=== PATIENT | female | born 1965 | race Caucasian/White ===

== ENCOUNTER 2019-11-17 13:14 | Inpatient (IN) | payer OTHER ==
[~2019-11-17] VITALS: Ht 160 cm; Wt 77.5 kg
--- OUTSIDE RECORDS SUMMARY | ~2019-11-17 | XMS | Encounter Summary ---
Demographics + + + | Address | [address] | | | [address] | | | [place] [address] | + + + | Home Phone | | + + + | Preferred Language | Unknown | + + + | Marital Status | Single | + + + | Oriental Orthodox Affiliation | Unknown | + + + | Race | Unknown | + + + | Ethnic Group | Unknown | + + + Author + + + | Author | [facility] | | | and [place] | + + + | Organization | [facility] | | | and [place] | + + + | Address | Unknown | + + + | Phone | Unavailable | + + + Care Team Providers + +------+ + | Care Devops Developer Name | Role | Phone | + +------+ + PCP | Unavailable | + +------+ + Encounter Details +--------+ + + + + | Date | Type | Department | Care Team | Description | +--------+ + + + + | 03/16/ | [facility] | [facility] | Pete Almaguer | | | 2012 | Encounter | MED CTR XRAY [address], [address] | | | | | [place] [place] | [place], [place] | | | | | [place] [id number] | [id number] | | | | | [phone] | [phone] | | | | | | | | +--------+ + + + + Social History + +-------+ +--------+------+ | Tobacco Use | Types | Packs/Day | Years | Date | | | | | Used | | + +-------+ +--------+------+ | Never Assessed | | | | | + +-------+ +--------+------+ + + + | Sex Assigned at | Date Recorded | | | | + + + | Not on file | | + + + documented as of this encounter Plan of Treatment Not on filedocumented as of this encounter Procedures + +--------+ + + + | Procedure Name | Priori | Date/Time | Associated Diagnosis | Comments | | | ty | | | | + +--------+ + + + | XR CERVICAL SPINE 2 | | 03/16/2011 | | Results for this | | OR 3 VIEWS | | 1:58 PM | | procedure are in the | | | | PST | | results section. | + +--------+ + + + documented in this encounter Results XR Cervical Spine 3 Vws or Less (03/16/2011 1:58 PM PST) + + | Specimen | + + | | + + + + + | Narrative | Performed At | + + + | [facility] Diagnostic Imaging Department | [facility] | | [address] [facility] | [facility] | | CERVICAL SPINE SERIES WITH | DIAG IMG | | FLEX/EX VIEWS, 03/16/2011 CLINICAL HISTORY: NECK PAIN. | | | FINDINGS: Neutral position lateral demonstrates straightening of the | | | normal lordosis. There is slig ht retrolisthesis of C5 over C6 in | | | the neutral position. This does not change appreciably on flex/ex | | | maneuvers. There is diminished excursion on forward flexion. There | | | is no change in the listhesis o n extension maneuver. Vertebral | | | body heights are maintained. Spondylitic changes are noted from C3 | | | through C6. IMPRESSION: 1. CERVICAL SPONDYLOSIS WITH | | | DEGENERATIVE SPONDYLOLISTHESIS AT C5-6 WITH NO APPRECIABLE MOTION ON | | | FLE X/EX MANEUVERS. Dictated Date/Time: 03/17/2011 08:07 | | | Transcribed Date/Time: 03/17/2011 08:14 Upholstery Bundler: | | | <Electronically Signed by Gab Mccurdy MD> 03/17/11 1507 | | + + + + + | Procedure Note | + + | Andrea Cummins Conversion - 03/17/2013 4:42 PM [facility] | | Diagnostic Imaging Department [address] [facility] | | CERVICAL SPINE SERIES WITH FLEX/EX VIEWS, 03/16/2011 | | CLINICAL HISTORY: NECK PAIN. FINDINGS: Neutral position lateral demonstrates | | straightening of the normal lordosis. There is slight retrolisthesis of C5 over C6 in | | the neutral position. This does not change appreciably on flex/ex maneuvers. There is | | diminished excursion on forward flexion. There is no change in the listhesis on | | extension maneuver. Vertebral body heights are maintained. Spondylitic changes are | | noted from C3 through C6. IMPRESSION: 1. CERVICAL SPONDYLOSIS WITH DEGENERATIVE | | SPONDYLOLISTHESIS AT C5-6 WITH NO APPRECIABLE MOTION ON FLEX/EX MANEUVERS. Dictated | | Date/Time: 03/17/2011 08:07Transcribed Date/Time: 03/17/2011 08:14Transcriptionist: | | <Electronically Signed by Gab Mccurdy MD> 03/17/11 1507 | | maneuvers. There is diminished excursion on forward flexion. There is no change in the l isthesis o | |n extension maneuver. Vertebral body heights are maintained. Spondylitic changes are note d from C3 | |through C6. | | | |IMPRESSION: | |1. CERVICAL SPONDYLOSIS WITH DEGENERATIVE SPONDYLOLISTHESIS AT C5-6 WITH NO APPRECIABLE MOT ION ON FLE | |X/EX MANEUVERS. | | | |Dictated Date/Time: 03/17/2011 08:07 | |Transcribed Date/Time: 03/17/2011 08:14 | |Upholstery Bundler: | |<Electronically Signed by Gab Mccurdy MD> 03/17/11 1507 | + + + +---------+ + + | Performing | Address | City/State/Zipcode | Phone Number | | Organization | | | | + +---------+ + + | [facility] | | | | | [facility] | | | | + +---------+ + + documented in this encounter Visit Diagnoses Not on filedocumented in this encounter"
--- OUTSIDE RECORDS SUMMARY | ~2019-11-17 | XMS | Encounter Summary ---
Demographics + + + | Address | [address] | | | [address] | | | [place] [address] | + + + | Home Phone | | + + + | Preferred Language | Unknown | + + + | Marital Status | Single | + + + | Scientologist Affiliation | Unknown | + + + | Race | Unknown | + + + | Ethnic Group | Unknown | + + + Author + + + | Author | [facility] | | | and [place] | + + + | Organization | [facility] | | | and [place] | + + + | Address | Unknown | + + + | Phone | Unavailable | + + + Care Team Providers + +------+ + | Care Link Wire Fabric Machine Operator Name | Role | Phone | + +------+ + PCP | Unavailable | + +------+ + Encounter Details +--------+ + + + + | Date | Type | Department | Care Team | Description | +--------+ + + + + | 05/13/ | Hospital | [facility] | Pete Almaguer | | | 2011 | Encounter | MED [facility] OP | MD Deandre [address] | | | | | [address] | [address] [place] | | | | | [place] | [id number] | | | | | [address] | [phone] | | | | [phone] | | | +--------+ + + + [...] + + documented as of this encounter H&P Notes Pete Almaguer MD - 05/14/2011 5:48 AM PDTDATE: PREOPERATIVE HISTORY AND PHYSICAL DATE OF PROCEDURE: 05/14/2011 CHIEF COMPLAINT: Neck pain. HISTORY OF PRESENT ILLNESS: Ms. Gonzalez is a 46-year-old, right-handed female , with a h istory of approximately 1 to 2 years of pain and numbness which is in her neck and radiates into her arms and hands through her shoulders. She associates these pains and numbness wit h headaches. She has attempted conservative management in the form of nonsteroidal anti-inf lammatory medications as well as massage, heat and ice and medical marijuana and has not h ad much improvement in these symptoms. She finds that the pains are worsened with any kind of activities such as vacuuming, cleaning, lifting, and doing chores in general. She has nu mbness which is in the left greater than the right and radiates from her shoulders down int o her arm. This is associated with some weakness in her hands as well as difficulty with fi ne motor control, for example , being unable to open jars and dropping things. She also naila cribes some weakness, numbness and pain in her ankles which is worse on the left as well. She describes no difficulty with bowel or bladder control apart from some urge incontinence . PAST MEDICAL HISTORY: 1. Seizure disorder since January 2010. 2. Restless leg. 3. Hypertension. PAST SURGICAL HISTORY: 1. Appendectomy for a ruptured appendix in 1984. 2. Two sections in 1993 and 1995. 3. A number of surgeries which she reports she cannot remember. MEDICATIONS: 1. Divalproex 500 mg p.o. 5 times a day. 2. Levetiracetam 500 mg p.o. q.a.m. and 250 mg p.o. at bedtime. 3. Droperidol 2 mg p.o. da scooby. 4. Atenolol 100 mg p.o. daily. 5. Clonazepam 1 mg p.o. at bedtime. 6. Absorbine RTC topical b.i.d. ALLERGIES: TYLOX CAUSED HER TO BREAKOUT IN A RASH. SOCIAL HISTORY: She is originally from [place], [place]. Moved to this area when she was 7. She is currently in the process of getting . 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 She reports r egular heavy caffeine use, no illicit drug use other than medical marijuana. Rare alcohol u se. No tobacco use. FAMILY HISTORY: Notable for nervous disorder in her sister, alcoholism in her sister, kimberlyn berna headaches in her mother and daughter, tension headaches in her mother and daughter, c ancer in 2 of her sisters and her mother diabetes and her sister and mother as a r esult of what she describes as a wrongful . Her sister had cervical cancer at age 52. She has a 41-year-old sister she describes as being mental. She has 2 children, 1 is 17 yea rs old and has ADHD and the other is 15 years old and is on SSI. REVIEW OF SYSTEMS: On a complete 12 system review of systems, she reports all negative ex cept negative except for the following significant positives: EYES: She has impaired sight and double vision. EAR, NOSE, THROAT: Hearing difficulty, ringing in the ears, dizziness and dental work. NEUROLOGIC: Numbness and pain in her arms which awakens her. She has weakness, muscle achi ng, coordination difficulty, change in her walk, head injury, neck injury, back injury, trevon n in the neck, pain in the back, fainting spells, loss of consciousness, tremor and shaking , seizures, headaches, migraines, memory loss, speech difficulty and confusion. PSYCHIATRIC: She reports depression, difficulty sleeping, anxiety. CARDIOVASCULAR: Swelling ankles. PULMONARY: Cough. GASTROINTESTINAL: No complaints. GENITOURINARY: No complaints. ENDOCRINE: Thyroid disease. INTEGUMENTARY: No complaints. HEMATOLOGIC / LYMPHATIC: No complaints. MUSCULOSKELETAL: She does describe joint pain. CONSTITUTIONAL: She describes fatigue, anemia and about a 30 pound weight gain since she s tarted taking her current medications. PHYSICAL EXAMINATION GENERAL: The patient is a pleasant, anxious and cooperative female who appears older than her stated age. VITAL SIGNS: She stands 158 cm tall and weighs 89 kilograms with a BMI of approximately 3 6.1. Her blood pressure 138/95, heart rate is 71, respirations 18. HEENT: Optic fundi demonstrate normal vascularity. Tympanic membranes are clear. Nares b enign. Oropharynx also benign. She does have some mild tardive dyskinesia movements. NECK: Supple, not tender, has diminished and painful range of motion with no Lhermitte, no Spurling, no bruit, no mass. CHEST: Clear to auscultation bilaterally. HEART: Regular rate and rhythm. ABDOMEN: Soft, nontender. EXTREMITIES: Diminished pulses. Pedal edema. No significant deformities. BACK: Negative straight leg raise. Negative Washington sign. Negative impingement test. She d oes have exquisite pain and tenderness over the entirety of her spine , consistent with Wad dell sign. NEUROLOGIC STATUS: She is awake, alert, and oriented x3, in no acute distress. Her speech is fluent, cognition is intact. Affect is appropriate, and fund of knowledge is poor. Memor y is intact for recent and remote events. Cranial nerves II through XII are intact. Strengt h is 5/5, with the exceptions of bilateral deltoids that are 4/5 as well as her median and ulnar intrinsics which were 4/5. Bow String Maker strength is 30 pounds on the right, 35 pounds on the left. Sensory exam is diminished and paresthetic over both shoulders into the arms, radiat ing to first 3 digits, worse on the left hand. Reflexes are absent at the biceps and tricep s. Trace at the brachioradialis, 1 at patellar, absent at Achilles and a flexor plantar res ponse. She has bilateral. She has Melgoza and no clonus. MUSCULOSKELETAL EXAMINATION: Symmetric tone and bulk of the musculature. Station is uprigh t, gait is stable. She has mild difficulty with heel-toe and tandem walking. CEREBELLAR EXAMINATION: Demonstrates mild dysmetria with no dysdiadochokinesis. She does h ave tremor in both upper extremities which is worse on the left. RADIOGRAPHIC REVIEW: An MRI of the cervical spine from November 04, 2010, demonstrates he rniated nucleus pulposus at C5-6 level which results in spinal stenosis. It is associated w ith disk degeneration. There is mild disk bulge and degeneration at the C3-4 level. There i s overall loss of cervical lordosis. X-rays AP and lateral flexion and extension from March 16, demonstrates spondylolisthesi s at C5-6 level but no evidence of any hypermobility or malalignment. IMPRESSION: 1. CERVICAL SPONDYLOTIC MYELOPATHY. 2. HERNIATED NUCLEUS PULPOSUS, C5-6. 3. CERVICAL STENOSIS, C5-6. 4. SEIZURE DISORDER. 5. MARIJUANA USE. 6. MIGRAINES. 7. RESTLESS LEGS. PLAN: Ms. Gonzalez has some reflex changes consistent with myelopathy and her clinical pi cture also supports this diagnosis. I think in addition to the radicular components of her cervical disease, this is the most worrisome. We did discuss treatment options including co nservative measures versus surgical option. I do think that the surgical decompression and stabilization would provide her with some improvement. She does have clinical features of functional overlay and this does concern me but at the same time, I think the organic findi ngs cannot be disputed. We did discuss stabilization and decompression at the C5-6 level al xochitl with the risks, alternatives and benefits of surgical intervention. The risks included, but not limited to, , stroke , heart attack, numbness, weakness, paralysis, failure o f the fusion, failure of the hardware, subsidence, adjacent segments deterioration, cerebro spinal fluid leak, bleeding, infection, injury to surrounding organs, injury from position ing, injury to the nerves, difficulty breathing, difficulty swallowing, difficulty with voi ce change and need for additional surgery. I did discuss with her also the risk of smoking and this is something that she verbalized understanding but she also verbalized reluctance to stop smoking marijuana. She felt that t his was the only thing that provides her with significant relief. In any event, will attempt to see if we can preparole counseling aide her into smoking cessation. Additional ly, we will obtain our usual preoperative evaluations and plan for surgery on the . DICTATED BY: Pete Almaguer MD Neurosurgery JOB #: [id number] EXT JOB #:[id number] EDITED: 05/14/2011 08:02 <Electronically Signed by Pete Almaguer MD> 05/18/11 0621 documented in this encounter Miscellaneous Notes Op Note - Pete Almaguer MD - 05/14/2011 5:48 AM PDTDATE: 05/14/2011 PROCEDURE TITLE 1. C5-6 anterior cervical diskectomy with allograft interbody arthrodesis. 2. C5-C6 anteri or cervical plating arthrodesis. 3. Microsurgical technique. 4. Placement and removal of head halter traction. SURGEON: Pete Almaguer MD. GEOSCIENCE TECHNICIAN: Trudi ANESTHESIA: General endotracheal by Dr. Sharif. PREOPERATIVE DIAGNOSES: 1. Herniated nucleus pulposus C5-6 with radiculopathy. 2. Degenerative disease C5-6. POSTOPERATIVE DIAGNOSES: 1. Herniated nucleus pulposus C5-6 with radiculopathy. 2. Degenerative disease C5-6. SPECIMENS: None. ESTIMATED BLOOD LOSS: 21 mL COMPLICATIONS: None. PROCEDURE TIME: 1 hour. INDICATIONS: Ms. Gonzalez is a 46-year-old female with a history of neck, shoulder, and roberto ateral arm pain as well as numbness and weakness. She has attempted extensive conservative management for this but unfortunately has failed. After discussion of the risks, alternativ es, and benefits of surgical i ntervention, she has elected to provide informed consent for the following procedure. PROCEDURE DESCRIPTION: Ms. Gonzalez was brought in the operative suite in supine position o n a stretc her and placed under general anesthesia without difficulty. She received 2 g Anc ef prophylactic antib iosis, 10 mg Decadron, 20 mg Pepcid. She was then placed in gentle ex tension with a shoulder roll and head halter traction was applied, approximately 15 pounds. She then had her shoulders taped for bett er visualization with lateral fluoroscopy, and t hen the anterior portion of her neck was prepped and draped in usual sterile fashion. A #10 blade was then employed to perform an approximately 3 cm transverse incision along a skinfold a nd then immaculate hemostasis was obtained with monopolar and bipolar cautery. M onopolar cautery was employed to transect the platysma and then a subplatysmal releasing di ssection was performed sharply. The anterior intermediate cervical fascia was incised sharp ly and then a blunt dissection ensued whi ch was medial to the carotid sheath and lateral t o the cervical strap muscles and esophagus. This all owed access to the anterior longitudin al ligament. A spinal needle was then placed into the C5-6 inte rspace and confirmed with l ateral fluoroscopy. Releasing dissection was then performed bilaterally of the longus colli with monopolar cautery, and this allowed placement of the Koros anterior cervical r etract or system. Once positioned, then the anterior osteophytes were resected with a Leksell rongeur and the n the ante rior longitudinal ligament and annulus was incised sharply with a #15 blade. The diskectomy then ensu ed with a combination of curettes, rongeurs and this was to prepare t he endplates for arthrodesis as well as provide for direct and indirect decompression. Ante rior osteophytes and posterior osteophytes were drilled with high-speed drill and resected with rongeurs. In the course of the diskectomy, the cartilaginous endplates were resected a nd bony endplates were preserved. The posterior longitudinal l igament was dissected with a micronerve hook and then resected with Kerrison rongeur. This resection was carried bilate rally into the neural foramina and decompression was performed bilaterally in the n eural f oramina. Thus, severe stenosis was noted bilaterally. Once the decompression was completed, t hen copious irrigation was applied, immaculate hemostasis plane obtained. The neural mina ments were no adriana to be significantly decompressed. The life graft interbody allograft spac ers were then sized with assistance of AP and lateral fluoroscopy. A 6 mm x 11.5 x 14.5 khadijah dotic biomechanical spacer was fel t to be appropriate. This was positioned into the disk s pace. The weights were then removed from the head and then the 22 mm anterior plate from Am joseph spine was then positioned. A And P Technician holes were drill ed and then 4 variable angled 12 mm 4.0 x 4.0 screws were placed into the bodies and secured and lock ed into the plate. The p urchase was adequate and the construct was stable. Copious irrigation was applied, immaculate hemostasis obtained. A 360-degree circumferentia l evaluati on of the surgical corridor was then performed to ensure that there was no addit ional hemorrhaging. T he bipolar cautery was employed to facilitate this as well. Multiple Valsalva maneuvers were also per formed to ensure that there was no additional hemorrhaging . At this point, then the anterior intermediate cervical fascia was closed and reapproximated with inte rrupted inverted 3-0 Vicryl sutures. The platysma was closed with interrupted in verted 3-0 Vicryl sut ures, and then the skin was closed with interrupted inverted 4-0 Vicr yl sutures. Then, over the surfa ce of the skin, Dermabond was applied. The patient was then awoke from general anesthesia without apparent complications, having t olerated p rocedure well. It should be noted that a timeout was performed prior to initiation of the procedure, and a ll counts were reported correct at the end. DICTATED BY: Pete Almaguer MD Neurosurgery JOB #: [id number] EXT JOB #:[id number] <Electronicall y Signed by Pete Almaguer MD> 05/18/11 0621 documented in this encounter Plan of Treatment Not on filedocumented as of this encounter Procedures + +--------+ + + + | Procedure Name | Priori | Date/Time | Associated Diagnosis | Comments | | | ty | | | | + +--------+ + + + | XR SPINE 1 VW | | 05/14/2011 | | Results for this | | | | 5:48 AM | | procedure are in the | | | | PDT | | results section. | + +--------+ + + + documented in this encounter Results XR Spine 1 Vw (05/14/2011 5:48 AM PDT) + + | Specimen | + + | | + + + + + | Narrative | Performed At | + + + | [facility] Diagnostic Imaging Department | [facility] | | [address] [facility] | [facility] | | SINGLE VIEW CERVICAL SPINE, | DIAG IMG | | 05/14/11 CLINICAL HISTORY: STATUS POST ACDF. COMPARISON: | | | Cervical radiographs 03/16/11, Cervical MRI 11/04/10. FINDINGS: | | | Anterior nbtnp-rec-paynn-fusion hardware is now present at C5-6 and | | | appears to be well-sea adriana. An interbody fusion prosthesis is | | | present at this level as well. There is straightening of the | | | cervical lordosis. Cervical vertebral height and alignment are | | | otherwise maintained, without eviden t fracture or subluxation. | | | Mild disk space narrowing and vertebral spondylosis are present at | | | C3-4. Imaged skull base is unremarkable. Prevertebral soft tissue | | | swelling is consistent with a history o f preceding instrumentation | | | of this region. IMPRESSION: 1. SATISFACTORY APPEARANCE | | | STATUS POST ACDF AT C5-6. Dictated Date/Time: 05/14/2011 | | | 12:24 Transcribed Date/Time: 05/14/2011 12:48 Block Handler: | | | SDC <Electronically Signed by Indra Finnegan MD> 05/14/11 2253 | | + + + + + | Procedure Note | + + | Placido, Rad Conversion - 03/17/2013 5:03 PM [facility] | | Diagnostic Imaging Department [address] [facility] [place] | | SINGLE VIEW CERVICAL SPINE, 05/14/11 CLINICAL HISTORY: | | STATUS POST ACDF. COMPARISON: Cervical radiographs 03/16/11, Cervical MRI 11/04/10. | | FINDINGS: Anterior yxrld-gak-aqira-fusion hardware is now present at C5-6 and appears | | to be well-seated. An interbody fusion prosthesis is present at this level as well. | | There is straightening of the cervical lordosis. Cervical vertebral height and | | alignment are otherwise maintained, without evident fracture or subluxation. Mild disk | | space narrowing and vertebral spondylosis are present at C3-4. Imaged skull base is | | unremarkable. Prevertebral soft tissue swelling is consistent with a history of | | preceding instrumentation of this region. IMPRESSION: 1. SATISFACTORY APPEARANCE | | STATUS POST ACDF AT C5-6. Dictated Date/Time: 05/14/2011 12:24Transcribed Date/Time: | | 05/14/2011 12:48Transcriptionist: <Electronically Signed by Indra Finnegan MD> | | 05/14/11 2253 | | cervical lordosis. Cervical vertebral height and alignment are otherwise maintained, with out eviden | |t fracture or subluxation. Mild disk space narrowing and vertebral spondylosis are present at C3-4. | | Imaged skull base is unremarkable. Prevertebral soft tissue swelling is consistent with a history o | |f preceding instrumentation of this region. | | | |IMPRESSION: | |1. SATISFACTORY APPEARANCE STATUS POST ACDF AT C5-6. | | | |Dictated Date/Time: 05/14/2011 12:24 | |Transcribed Date/Time: 05/14/2011 12:48 | |Block Handler: MR.SDC | |<Electronically Signed by Indra Finnegan MD> 05/14/11 2253 | + + + +---------+ + + | Performing | Address | City/State/Zipcode | Phone Number | | Organization | | | | + +---------+ + + | [place] | | | | | [place] | | | | + +---------+ + + documented in this encounter Visit Diagnoses Not on filedocumented in this encounter"
--- OUTSIDE RECORDS SUMMARY | ~2019-11-17 | XMS | Clinical Summary ---
Demographics + + + | Address | [address] | | | [address] | | | [place] [address] | + + + | Home Phone | | + + + | Preferred Language | Unknown | + + + | Marital Status | Single | + + + | Catholic Affiliation | Unknown | + + + | Race | Unknown | + + + | Ethnic Group | Unknown | + + + Author + + + | Author | [facility] | | | and [place] | + + + | Organization | [facility] | | | and [place] | + + + | Address | Unknown | + + + | Phone | Unavailable | + + + Care Team Providers + +------+ + | Care Cruise Staff Member Name | Role | Phone | + +------+ + PCP | Unavailable | + +------+ + Allergies Not on File Medications Not on file Active Problems Not on file Social History + +-------+ +--------+------+ | Tobacco [...] on file | | + + + Last Filed Vital Signs Not on file Plan of Treatment + + +-------+ + | Health Maintenance | Due Date | Last | Comments | | | | Done | | + + +-------+ + | Vaccine: | | | | | Dtap/Tdap/Td (1 - | 7 | | | | Tdap) | | | | + + +-------+ + | Cervical Cancer | | | | | Screening (Pap) | 8 | | | + + +-------+ + | Breast Cancer | | | | | Screening | 3 | | | + + +-------+ + | Vaccine: Zoster (1 | | | | | of 2) | 8 | | | + + +-------+ + | Vaccine: Influenza | | | | | (#1) | 0 | | | + + +-------+ + Results Not on filefrom Last 3 Months"
--- OUTSIDE RECORDS SUMMARY | ~2019-11-17 | XMS | Clinical Summary ---
Demographics + + + | Address | [address] | | | [place] [address] | + + + | Home Phone | | + + + | Preferred Language | Unknown | + + + | Marital Status | Unknown | + + + | Adventist Affiliation | Unknown | + + + | Race | Unknown | + + + | Ethnic Group | Unknown | + + + Author + + + | Author | NON REVENUE LOCATIONS | + + + | Organization | NON REVENUE LOCATIONS | + + + | Address | Unknown | + + + | Phone | Unavailable | + + + Care Team Providers + +------+ + | Care Nutrient Management Specialist Name | Role | Phone | + +------+ + PCP | Unavailable | + +------+ + Source Comments GARTH is fully live on both [facility] and [facility] Allergies Not on File Medications Not on [...] | | + + +-------+ + | Influenza (Flu) | | | | | vaccination (#1) | 0 | | | + + +-------+ + | Pneumococcal | Aged Out | | No longer eligible based on patient's age | | vaccination | | | to complete this topic | + + +-------+ + Results Not on filefrom Last 3 Months
--- OUTSIDE RECORDS SUMMARY | ~2019-11-17 | XMS | Clinical Summary ---
Demographics + + + | Address | [address] | | | [place] [address] | + + + | Home Phone | | + + + | Preferred Language | Unknown | + + + | Marital Status | Unknown | + + + | Sikhism Affiliation | Unknown | + + + [...] Team Providers + +------+ + | Care Arabic Professor Name | Role | Phone | + +------+ + PCP | Unavailable | + +------+ + Source Comments GARTH is fully live on both [facility] and [facility] InPatient.[facility] Allergies Not on File Medications Not on [...]
--- OUTSIDE RECORDS SUMMARY | ~2019-11-17 | XMS | Encounter Summary ---
Demographics + + + | Address | [address] | | | [place] [address] | + + + | Home Phone | | + + + | Preferred Language | Unknown | + + + | Marital Status | Unknown | + + + | Judaism Affiliation | Unknown | + + + | Race | Unknown | + + + | Ethnic Group | Unknown | + + + Author + + + | Author | [facility] | + + + | Organization | [facility] | + + + | Address | Unknown | + + + | Phone | Unavailable | + + + Care Team Providers + +------+ + | Care Mainspring Winder And Oiler Name | Role | Phone | + +------+ + PCP | Unavailable | + +------+ + Encounter Details +--------+ + + + + | Date | Type | Department | Care Team | Description | +--------+ + + + + | 02/12/ | Documentati | Neurology at | Demetrio Ibrahim, | | | 2010 | on | [facility] & | [address] | | | | | [place] [address] | [place], [place] | | | | | [address] [facility] | [address] | | | | | [facility], | [phone] | | | | | [facility] | | | | | | Floor [place], [place] | | | | | | [address] | | | | | | [phone] | | | +--------+ + + + [...] Not on filedocumented as of this encounter Visit Diagnoses Not on filedocumented in this encounter
--- OUTSIDE RECORDS SUMMARY | ~2019-11-17 | XMS | Clinical Summary ---
Demographics + + + | Address | [address] | | | [address] | | | [place] [address] | + + + | Home Phone | | + + + | Preferred Language | Unknown | + + + | Marital Status | Single | + + + | Voodoo Affiliation | Unknown | + + + | Race | Unknown | + + + | Ethnic Group | Unknown | + + + Author + + + | Author | [facility] | | | and [place] | + + + | Organization | [facility] | | | and [place] | + + + | Address | Unknown | + + + | Phone | Unavailable | + + + Care Team Providers + +------+ + | Care Multineedle Shirrer Name | Role | Phone | + [...]
--- OUTSIDE RECORDS SUMMARY | ~2019-11-17 | XMS | Encounter Summary ---
Demographics + + + | Address | [address] | | | [place] [address] | + + + | Home Phone | | + + + | Preferred Language | Unknown | + + + | Marital Status | Unknown | + + + | Baptism Affiliation | Unknown | + + + | Race | Unknown | + + + | Ethnic Group | Unknown | + + + Author + + + | Author | [facility] | + + + | Organization | [facility] | + + + | Address | Unknown | + + + | Phone | Unavailable | + + + Care Team Providers + +------+ + | Care Chromium Plater Name | Role | Phone | + +------+ + PCP | Unavailable | + +------+ + Encounter Details +--------+ + + + + | Date | Type | Department | Care Team | Description | +--------+ + + + + | 02/12/ | Documentati | Neurology at | Demetrio Ibrahim, | | | 2010 | on | [facility] & | [address] | | | | | [place] [address] | [place], [place] | | | | | Ave [facility] | [address] | | | | | [facility], | [phone] | | | | | [facility] | | | | | | Floor [place], [place] | | | | | | [address] | | | | | | [phone] | | | +--------+ + + + [...]
--- OUTSIDE RECORDS SUMMARY | ~2019-11-17 | XMS | Encounter Summary ---
Demographics + + + | Address | [address] | | | [address] | | | [place] [address] | + + + | Home Phone | | + + + | Preferred Language | Unknown | + + + | Marital Status | Single | + + + | Restorationist Affiliation | Unknown | + + + | Race | Unknown | + + + | Ethnic Group | Unknown | + + + Author + + + | Author | [facility] | | | and [place] | + + + | Organization | [facility] | | | and [place] | + + + | Address | Unknown | + + + | Phone | Unavailable | + + + Care Team Providers + +------+ + | Care Whiskey Proof Reader Name | Role | Phone | + +------+ + PCP | Unavailable | + +------+ + Encounter Details +--------+ + + + + | Date | Type | Department | Care Team | Description | +--------+ + + + + | 03/16/ | [facility] | [facility] | Pete Almaguer | | | 2012 | Encounter | MED CTR XRAY [address] | | | | | [place] | [place], [place] | | | | | [place] [address] | [address] | | | | | [phone] | [phone] | | | | | | | [...] Performed At | + + + | [facility] Diagnostic Imaging Department | [facility] | | [address] [facility] | [facility] | | CERVICAL SPINE SERIES WITH | [...] | | | Transcribed Date/Time: 03/17/2011 08:14 Computer Patternmaker: | | | <Electronically Signed by Gab Mccurdy MD> 03/17/11 1507 | | + + + + + | Procedure Note | + + | Andrea Cummins Conversion - 03/17/2013 4:42 PM [facility] | | Diagnostic Imaging Department [address] [facility] | | CERVICAL SPINE SERIES WITH [...] 08:07 | |Transcribed Date/Time: 03/17/2011 08:14 | |Computer Patternmaker: | |<Electronically Signed by Gab Mccurdy MD> [...]
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
--- OUTSIDE RECORDS SUMMARY | ~2019-11-17 | XMS | Encounter Summary ---
Demographics + + + | Address | [address] | | | [place] [address] | + + + | Home Phone | | + + + | Preferred Language | Unknown | + + + | Marital Status | Unknown | + + + | Hindu Affiliation | Unknown | + + + | Race | Unknown | + + + | Ethnic Group | Unknown | + + + Author + + + | Author | [facility] | + + + | Organization | [facility] | + + + | Address | Unknown | + + + | Phone | Unavailable | + + + Care Team Providers + +------+ + | Care Commercial Driver Name | Role | Phone | + +------+ + PCP | Unavailable | + +------+ + Encounter Details +--------+ + + + + | Date | Type | Department | Care Team | Description | +--------+ + + + + | 02/12/ | Outside | Neurophysiology | [place], | | | 2010 | Referral | EEG at [facility] [address] | John Hylton MD | | | | Order | [facility] [address] | [address] | | | | | [facility] | [place] [address] | | | | | [address] | [phone] | | | | | [place], [place] | | | | | | [address] | | | | | | [phone] | | | +--------+ + + + [...] | + +--------+ + + + | EEG ROUTINE | Routin | 02/11/2010 | | Results for this | | | e | | | procedure are in the | | | | | | results section. | + +--------+ + + + documented in this encounter Results EEG ROUTINE (02/11/2010) + + | Specimen | + + | | + + + + + | Narrative | Performed At | + + + | Patient Name: Jud Gonzalez Date of : 1965 | | | Date of Test: 02/11/2010 Place | | | of Service: [facility] ROUTINE EEG background | | | activity in the awake state contains a posteriorly dominant and | | | symmetrically distributed 9 Hz alpha rhythm that blocks with eye | | | opening. There is some low voltage fast activity seen bilaterally | | | and symmetrically. Hyperventilation and photic stimulation produced | | | no significant change. The patient is awake throughout. The main | | | feature of this EEG is the presence of several well formed | | | interictal epileptiform discharges in the left mid to anterior | | | temporal region. Clinical interpretation: this is an abnormal | | | awake EEG due to interictal epileptiform discharges seen in the left | | | temporal region. The finding is potentially epileptogenic. | | | Demetrio Ibrahim M.D. Dept. Of Neurology | | + + + documented in this encounter Visit Diagnoses Not on filedocumented in this encounter
--- OUTSIDE RECORDS SUMMARY | ~2019-11-17 | XMS | Encounter Summary ---
Demographics + + + | Address | [address] | | | [place] [address] | + + + | Home Phone | | + + + | Preferred Language | Unknown | + + + | Marital Status | Unknown | + + + | Restorationism Affiliation | Unknown | + + + | Race | Unknown | + + + | Ethnic Group | Unknown | + + + Author + + + | Author | [facility] | + + + | Organization | [facility] | + + + | Address | Unknown | + + + | Phone | Unavailable | + + + Care Team Providers + +------+ + | Care Truck Repair Service Estimator Name | Role | Phone | + +------+ + PCP | Unavailable | + +------+ + Encounter Details +--------+ + + + + | Date | Type | Department | Care Team | Description | +--------+ + + + + | 02/12/ | Outside | Neurophysiology | [place], | | | 2010 | Referral | EEG at [facility] [address] | John Hylton MD | | | | Order | [facility] [address] | [address] | | | | | [facility] | [place] [address] | | | | | [address] | [phone] | | | | | [place], [place] | | | | | | [address] | | | | | | [phone] | | | +--------+ + + + [...] 02/11/2010 Place | | | of Service: [facility] ROUTINE EEG background | | | [...]
[~2019-11-17 13:14] MED LIST: PROVENTIL HFA6.7 GM INH; TESSALON PERLE100 MG PO
--- NOTE | 2019-11-17 18:11 | NUR ---
1725: PT ARRIVED TO MED-SURG ROOM 108. PT ORIENTED TO THE ROOM AND SHE DENIES ANY PAIN AT THIS TIME. SHE STATES SHE HAS SOME SOB BUT THAT IT IS MUCH BETTER THAN IT WAS PRIOR TODAY. SAT 100% ON ROOM AIR, LUNG SOUNDS DECRASED IN ALL LOBE. SEE ASSESSMENT.
--- NOTE | 2019-11-17 18:25 | NUR ---
PT VOIDED TWICE SINCE SHE ARRIVED TO THIS UNIT FOR 890 ML OF CLEAR YELLOW URINE. PT NOW EATING HER DINNER AND SHE DENIES ANY OTHER NEEDS AT THIS TIME.
--- NOTE | 2019-11-17 19:15 | NUR ---
SUPPLY ANALYST ROUNDING NOTE. PT RESTING IN BED. REPORT RECEIVED FROM ARIELA GARCIA. PT DENIES NEEDS AT THIS TIME.
--- NOTE | 2019-11-17 20:51 | NUR ---
VS AND I/O COMPLETE. PT LAYING IN BED, DROWSY. PT REMAINS TACHYCARDIC. BP IS IMPROVED FROM PREVIOUS READINGS AT 133/88. PT HAS PUT OUT LARGE AMOUNT OF CLEAR YELLOW URINE. NO FURTHER NEEDS AT THIS TIME. CALL LIGHT WITHIN REACH
--- NOTE | 2019-11-17 23:09 | NUR ---
CHECKED ON PT. PT WAS AWOKE EASILY THIS NURSE ENTERED THE ROOM. PT HAD BEEN UP TO THE TOILET TO VOID. PT REMAINS SINUS TACH PER TELEMETRY
--- NOTE | 2019-11-18 02:17 | NUR ---
VITALS AND I&OS DONE AND CHARTED. PT ASKED FOR SOME PAIN MEDS FOR HER "BAD HEADACHE" I INFORMED HER RN CAMRON. BEDSIDE TABLE AND CALL LIGHT IN REACH.
--- NOTE | 2019-11-18 04:42 | NUR ---
PT HAS HEADACHE PAIN OF 7/10. PT DENIES ALLERGY TO TYLENOL. NIO ADDED FOR TYLENOL AFTER DISCUSSING WITH DR STILL D/T ALLERGY LISTING. 500MG TYLENOL ADMINISTERED. ASSESSMENT PERFORMED. LEG EDEMA UNCHANGED, SINUS TACH REMAINS. WARM BLANKET PROVIDED FOR NECK/HEADACHE. NO FURTHER REQUESTS AT THIS TIME. CALL LIGHT WITHIN REACH.
--- NOTE | 2019-11-18 05:42 | NUR ---
VITALS AND I&OS DONE AND CHARTED. BEDSIDE TABLE AND CALL LIGHT IN REACH. PT NEEDS NOTHING AT THIS TIME.
--- NOTE | 2019-11-18 06:05 | NUR ---
PT WAS ABLE TO SLEEP SOME THROUGHOUT THE NIGHT. PT REMAINED IN SINUS TACH PER TELEMETRY ENTIRE SHIFT. PT IS INDEPENDENT IN ROOM, REPORTS SOB WHEN GETTING UP ALTHOUGH SPO2 REMAINS >90%. URINE OUTPUT WAS STRONG EARLY IN SHIFT AND HAS REDUCED TO LOWER AMOUNTS SHIFT PROGRESSED. BILATERAL LEG EDEMA REMAINS. PT REQUESTED PRN PAIN MED DURING NIGHT FOR HEADACHE PAIN. PRN TYLENOL GIVEN. PT FOLLOWING FLUID RESTRICTION WELL.
--- NOTE | 2019-11-18 07:32 | NUR ---
0700: Report received from Florence TITUS. Pt sleeping at this time, call veras within reach. Tele reading st at 110.
--- NOTE | 2019-11-18 08:45 | NUR ---
PT GIVEN IV LASIX PER ORDER. PT COMPLAINT OF HEADACHE, GIVEN 500MG TYLENOL, PT STATES SHE DRINKS COFFEE DAILY, PROVIDED CUP OF COFFEE AND ICE WATER PER FLUID RESTRICTION.
--- NOTE | 2019-11-18 09:21 | NUR ---
PT STATES HER BREATHING IS GETTING BETTER. LUNG SOUNDS SHALLOW AND DECREASED IN ALL LOBES. SHE STATES SHE CONTINUES TO HAVE SOB WITH TRIPS TO THE BR. GOOD URINE OUTPUT. WEIGHT IS DECREASED FROM ADMIT WEIGHT. SEE ASSESSMENT FOR A FULL UPDATE.
--- NOTE | 2019-11-18 10:43 | NUR ---
Pt sleeping, RR 20. Call veras within reach.
--- NOTE | 2019-11-18 13:05 | NUR ---
PT STATES SHE CONTINUES TO HAVE SOME SOB BUT THAT IT IS IMPROVING. SAT IS 98% ON RA AT THIS TIME. PT COMPLAINS OF A MD SILVANA AWARE AND NEW ORDERS RECEIVED, SEE EMAR.
--- NOTE | 2019-11-18 13:17 | NUR ---
PT NOW EATING HER LUNCH AND IS TALKING WITH HER VISITOR.
--- NOTE | 2019-11-18 14:28 | NUR ---
PATIENT IN BED RESTING WITH EYES CLOSED. CALL LIGHT IN REACH. NO FURTHER NEEDS AT THIS TIME.
--- NOTE | 2019-11-18 14:32 | NUR ---
Pt sleeping, RR 20 and regular.
--- NOTE | 2019-11-18 16:50 | NUR ---
Pt resting in her bed watching tv and she states her PINA is now gone. She states her breathing feels "better" and she denies sob at rest. She states she does get sob still with activity.
--- NOTE | 2019-11-18 19:20 | NUR ---
BEDSIDE REPORT RECEIVED FROM ARIELA GARCIA. pt RESTING IN BED AWAKE. TRAY TABLE CLEARED. pt DENIES ANY NEEDS AT THIS TIME. CALL LIGHT IN REACH.
--- NOTE | 2019-11-18 21:03 | NUR ---
SOAPING DEPARTMENT SUPERVISOR ROUNDING NOTE. PT RESTING IN CHAIR. PRIMARY RN AT BEDSIDE. URINE EMPTIED FROM HAT, VS OBTAINED. PT REQUESTS MORE WATER, PROVIDED. PT TALKATIVE. PRIMARY RN REMAINS AT BEDSIDE AFTER SLEEP SCIENTIST STEPS OUT. CALL LIGHT IN REACH, WHITE BOARD UDPATED.
--- NOTE | 2019-11-18 21:22 | NUR ---
pt UP IN CHAIR. ASSESSMENT COMPLETE. HR TACHYCARDIC 115-124 WHILE RN IN ROOM. LUNG SOUNDS CLEAR. 2+ PITTING EDEMA BLE. pt REQUESTING SHOWER. IV WRAPPED, UP TO SHOWER REQUESTED. LINENS CHANGED. VERBALIZES UNDERSTANDING TO USE CALL LIGHT WHEN FINISHED.
--- NOTE | 2019-11-18 21:30 | NUR ---
PATIENT CALLED STATED SHE IS DONE OUT OF SHOWER. WENT TO ROOM. DRIED THE BATHROOM FLOOR. PLACED THE TELE MACHINE BACK. NO OTHER NEEDS AT THIS TIME.
--- NOTE | 2019-11-18 21:30 | NUR ---
BED LINEN CHANGED.
--- NOTE | 2019-11-18 23:49 | NUR ---
pt RESTING IN BED, HR 113 ON TELE 4. LIGHTS OFF IN ROOM.
--- NOTE | 2019-11-19 00:24 | NUR ---
CALL LIGHT ANSWERED pt RESTLESS IN BED, STATES "I CAN'T SLEEP, I NORMALLY SMOKE MARIJUANA BEFORE BED, I FEEL LIKE I'M GOING TO CRAWL OUT OF MY SKIN." PHONED, TELEPHONE ORDER REPEATED BACK.
--- NOTE | 2019-11-19 00:43 | NUR ---
pt UP IN CHAIR. PRN ANXIETY MEDICATION ADMINISTERED. SLEEP KIT PROVIDED. CALL LIGHT IN REACH. NO ADDITIONAL REQUESTS.
--- NOTE | 2019-11-19 03:20 | NUR ---
CHECKED ON pt. RESTING IN BED WITH EYES CLOSED. HR 116 ON TELE 4.
--- NOTE | 2019-11-19 05:18 | NUR ---
pt C/O ANXIETY THIS SHIFT. PHONED, NEW ORDER FOR PRN ANXIETY MEDICATION ADMINISTERED. pt APPEARED TO REST WELL AFTER ADMINISTRATION. HR TACHYCARDIC ON TELE 4. IV SL. 1600 ML FLUID RESTRICTION, pt TOLERATING WELL. INDEPENDENT IN ROOM.
--- NOTE | 2019-11-19 06:11 | NUR ---
pt RESTING IN BED AWAKE, DROWSY. DAILY WEIGHT 80.3 KG STANDING WEIGHT. ASSESSMENT COMPLETE. FINE CRACKLES BILATERALLY BASES. 2+ EDEMA BLE, IMPROVEMENT FROM START OF SHIFT. INDEPENDENT TO RESTROOM FOR VOID. pt C/O LACK OF SLEEP, "GOT A LITTLE AFTER THE MEDICATION" DENIES NEED FOR ADDITIONAL PRN ANXIETY MEDICATION. CALL LIGHT IN REACH. DENIES PO FLUIDS AT THIS TIME.
--- NOTE | 2019-11-19 07:16 | NUR ---
9110; REPORT RECEIVED FROM JAMI TITUS. PT APPEARS TO BE SLEEPING, TELE SHOWS ST AT 115. CALL STAFFORD WITHIN REACH.
--- NOTE | 2019-11-19 08:28 | NUR ---
PT STATES HER BREATHING IS CONTINUING TO IMPROVE AND SHE DENIES ANY SOB AT REST. LUNG SOUNDS CLEAR WITH DECREASED BASES. SHE DOES COMPLAIN OF ANXIETY AND WAS MEDICATED FOR IT AT THIS TIME. PT DENIES ANY CP OR OTHER PAIN OR PROBLEMS OTHER THEN THE ANXIETY. PT IS PLEASED THAT A CUSTOMS COMPLIANCE SPECIALIST IS GOING TO BE SEEING HER SHE IS IN THE PROCESS OF LOSING HER HOME AND JOB.
--- NOTE | 2019-11-19 09:37 | NUR ---
Pt appears to be sleeping, tele st at 112.
--- NOTE | 2019-11-19 10:01 | NUR ---
Pt recently awoke from her nap and she states that her anxiety is still present some but that it is improved. Will continue to monitor.
--- NOTE | 2019-11-19 11:25 | EKG ---
[facility] [address] [facility] [place], [place] [address] Signed Sinus tachycardia Otherwise normal ECG No previous ECGs available Confirmed by ANJEL STILL MD ([id number]) on 11/19/2019 11:25:20 AM Electronically Signed By: ANJEL STILL MD 11/19/19 1125 PATIENT NAME: ANNLULU M Electrocardiogram DATE OF : 69 PHYSICIAN: ANJEL STILL MD REPORT #: [id number] REPORT IS CONFIDENTIAL AND NOT TO BE RELEASED WITHOUT AUTHORIZATION
--- NOTE | 2019-11-19 11:47 | NUR ---
Pt eating her lunch and is watching tv with no complaints at this time. Tele ST at 118.
--- NOTE | 2019-11-19 13:20 | NUR ---
PT RESTING IN HER BED AND COMPLAINS OF ANXIETY. SHE STATES THAT SHE SMOKES POT AT HOME FOR HER ANXIETY WITH GOOD RESULTS. LUNG SOUNDS REMAIN DECREASED WITH A RR OF 20 AND A SAT OF 97% ON ROOM AIR AND HER BREATHS REMAIN SHALLOW. PT MEDICATED ORDERED WITH LASIX. NO OTHER CHANGES NOTED, SEE ASSESSMENT AND I&O'S.
--- NOTE | 2019-11-19 13:29 | NUR ---
NOTIFIED OF PT'S ANXIETY. NEW ORDERS RECEIVED.
--- NOTE | 2019-11-19 14:20 | NUR ---
Pt states that her anxiety is getting better after the medication.
--- NOTE | 2019-11-19 16:29 | NUR ---
Pt sleeping at this time. RR of 20.
--- NOTE | 2019-11-19 17:55 | NUR ---
PT DENIES ANY PROBLEMS AT THIS TIME AND STATES THAT HER ANXIETY IS DOING "PRETTY GOOD".
--- NOTE | 2019-11-19 20:33 | NUR ---
IN TO DO MEDS AND ASSESSMENT. PT DENIES SOB/PAIN. SITTING UP IN BED WATCHING TV. LUNGS CLEAR. LOVENOX INJECTION GIVEN. SANDWICH BOX GIVEN PER REQUEST.
--- NOTE | 2019-11-19 20:35 | NUR ---
DUCT MAKER ROUNDING NOTE. PT SITTING UP IN CHAIR WATCHING TV. PRIMARY RN AT BEDSIDE. PT DENIES QUESTIONS OR CONCERNS AT THIS TIME. ICE WATER AND 7UP PROVIDED. PT TALKATIVE RE: FAMILY. PT DENIES FURTHER NEEDS AT THIS TIME. PRIMARY RN REMAINS IN ROOM. CALL LIGHT IN REACH. WHITE BOARD UDPATED.
--- NOTE | 2019-11-19 22:40 | NUR ---
PT RESTING IN BED, RESP EVEN AND UNLABORED.
--- NOTE | 2019-11-20 00:11 | NUR ---
PT RESTING WITH EYES CLOSED, RESP EVEN AND UNLABORED.
--- NOTE | 2019-11-20 02:22 | NUR ---
PT RESTING IN BED, RESP EVEN AND UNLABORED.
--- NOTE | 2019-11-20 05:00 | NUR ---
IN TO CHECK ON PTS, DENIES NEEDS AND BACK TO SLEEP.
--- NOTE | 2019-11-20 07:05 | NUR ---
REPORT RECEIVED. PATIENT RESTING IN BED. RESPIRATIONS EVEN AND UNLABORED.
--- NOTE | 2019-11-20 08:56 | NUR ---
KERRIE COMPLETED THIS AM
--- NOTE | 2019-11-20 09:45 | NUR ---
PATIENT ASSESSMENT COMPLETE. MORNING MEDS GIVEN. PATIENT STATES SHE IS FEELING ANXIOUS. PATIENT UPDATED ON CARE PLAN FOR THIS SHIFT. PATIENT AGREEABLE TO THIS PLAN. CALL LIGHT WITHIN REACH. NO REQUESTS.
--- NOTE | 2019-11-20 09:49 | NUR ---
PATIENT IN BED, RN IN ROOM. PATIENT FEELING A LITTLE ANXIOUS. CALL LIGHT IN REACH. NO FURTHER NEEDS AT THIS TIME.
--- NOTE | 2019-11-20 10:04 | NUR ---
PT REPORTING ANXIETY, PRN VISTARIL ADMINSTERED.
--- NOTE | 2019-11-20 10:17 | NUR ---
PATIENT AMBULATED IN HALLWAY ONE LAP AROUND NURSES STATION, VLAD. PATIENT TOLERATED IT WELL FOR THE MOST PART BUT GOT A LITTLE DIZZY AT THE END. O2 CHECKED WHEN WE GOT BACK TO ROOM AND WAS 99 ON ROOM AIR. PATIENT NOW BACK TO BED, CALL LIGHT IN REACH. NO FURTHER NEEDS AT THIS TIME.
--- NOTE | 2019-11-20 11:58 | NUR ---
SPOKE WITH PATIENT EXTENSIVELY IN ROOM. SHE IS LIKELY BEING DISCHARGED LATER TODAY OR TOMORROW. SHE HAS NOT SEEN PCP IN SEVERAL YEARS, SHE UNDERSTANDS THAT SHE WILL NEED TO F/U WITH THEM AND PROBABLY CARDIOLOGY AT SOME POINT. SHE DOES NOT HAVE A CAR. SHE DOES HAVE LICENSE BUT NOT ENOUGH MONEY FOR CAR. SHE HAS WORKED FOR [employer] LAST 4 YEARS AND WAS NOT PAID SHE WAS ALLOWED TO LIVE ON HOUSE ON THE PROPERTY. SHE WAS PAID A SMALL AMOUNT FOR EACH CONSTITUTION PARTY SHE WAS ABLE TO SCHEDULE BUT NO OTHER SALARY. WITH [employer], THERE WAS NO ACTIVITIES ABLE TO SCHEDULE AND A NEW TURNOVER IN MANAGEMENT DECIDED TO LET HER GO. SHE IS CHALLENGING THE EVICTION BUT HAS BEEN TOLD SHE MUST MOVE OUT IN 2 WEEKS. 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 SHE WENT TO [facility] AND WAS TOLD THEY CAN'T HELP HER UNTIL SHE IS LIVING IN A TENT. SHEHAS A SISTER IN [facility] BUT SHE ALREADY HAS 10 PEOPLE LIVING THERE IN 3 BEDROOM AND CANNOT HELP HER. HER DAUGHTER LIVES [place] AND IS NOT IN A POSITION TO HELP. SHE IS UNSURE WHAT SHE WILL DO. SHE HAD ANOTHER SISTER HERE WHO A FEW YEARS AGO, SHE TALKS TO HER EX [id number] AT TIMES, HE OFFERED TO HELP FIND HER A CAR IF SHE GETS MONEY FOR ONE, BUT ISN'T IN A POSITION TO HELP HER OTHERWISE. I DISCUSSED LACK OF RESOURCES IN [place]. SHE IS WELL AWARE OF THE HOUSING PROBLEMS HERE. SHE STATES SHE WAS HAVING A HARD TIME FINDING A PLACE 4 YEARS AGO AND HAD FELT CJ WHEN SHE FOUND THIS JOB. I DISCUSSED HAVING THE CHW FROM HER PCP CLINIC HELP HER IF THEY CAN. SHE IS AGREEABLE TO WORK WITH THEM.
--- NOTE | 2019-11-20 12:07 | NUR ---
PATIENT IN CHAIR EATING LUNCH. RESPIRATIONS EVEN AND UNLABORED. WATER FILLED. URINARY HAT EMPTIED. URINE CLEAR, PALE. PATIENT DENIES PAIN OR DISCOMFORT. NO FURTHER REQUESTS.
--- NOTE | 2019-11-20 12:53 | NUR ---
PT ALERT, ORIENTED AND RESTING AFTER P.T. PT SAID THIS IS SOMETHING NEW SHE IS DEALING WITH. THERE IS A TREMENDOUS AMOUNT OF STRESS IN HER LIFE NOW THAT IS NEGATIVELY IMPACTING HER.PT SHARED HER SITUATION, REQUESTED PRAYER WILL FOLLOW PT REQUESTED PRAYER
--- NOTE | 2019-11-20 13:35 | NUR ---
PATIENT IN BED RESTING. LASIX GIVEN. PATIENT FALLS ASLEEP. RESPIRATIONS EVEN AND UNLABORED. CALL LIGHT WITHIN REACH.
--- NOTE | 2019-11-20 13:38 | NUR ---
IMAGING IN FOR ULTRASOUND. PATIENT RESTING IN BED.
--- NOTE | 2019-11-20 13:56 | NUR ---
PATIENT IN BED RESTING. FRESH WATER GIVEN. PATIENT SAID SHOWER MAYBE LATER. CALL LIGHT IN REACH. NO FURTHER NEEDS AT THIS TIME.
--- NOTE | 2019-11-20 15:24 | NUR ---
PATIENT RESTING IN CHAIR. AGITATED MOOD. PATIENT STATES HE "WANTS TO CHECK OUT PLEASE". PATIENT DECLINES ADIVAN. ASSESSMENT COMPLETE. CALL LIGHT WITHIN REACH.
--- NOTE | 2019-11-20 15:44 | NUR ---
PATIENT RESTING IN BED. RESPIRATIONS EVEN AND UNLABORED. LUNG SOUNDS CLEAR BILATERALLY. PATIENT DENIES GENERAL PAIN OR DISCOMFORT, BUT STATES PAIN ON PALPATION OF BOTH TIBIAS, OF LEFT LOWER QUADRANT, AND ON PALPATION OF LUMP ON SCALP. PATIENT STATES SHE HAS TWO INTERVIEWS TOMORROW AFTERNOON AND WANTS TO GO HOME. THIS RN TOLD PATIENT THAT I WILL TALK TO THE CHARGE NURSE ABOUT THIS REQUEST.
--- NOTE | 2019-11-20 15:50 | NUR ---
Certified Heart Failure Nurse Notes: PCP:Wilmar Date of echocardiogram 11/20/19 Admit Wt.: 82.1kg Today's Wt.: 78.47 kg Social support system: Patient reports very limited. Weight monitoring: Does not own scales. Given Medline digital scales for home use. Discussed how to weigh daily/ when to notify PCP Symptom management: Addressed monitoring and reporting changes in weight or symptoms utilizing Zones form Transportation mode: Relies on public transportation and others to help out. She states she walks a lot. Diet: Usual meals are made in apartment. Rarely dines out. Given information on why a lower salt food plan is important. Recommended avoiding processed foods and /or limiting portions. Label reading abilities not assessed at this first visit. Usual physical activity: Walks as form of transportation. States she has a hard time navigating the 10 steps to her home. Advanced directive: Not discussed at this initial visit Recommendations prior to discharge: Document ambulation oxygen saturations prior to discharge Absence of orthostatic hypotension. Discharge weight less than admit weight. Discharge BNP less than admit (as per [facility] Heart Failure DC Bundle) Barriers to self-care include: Concerns about housing issues and job interviews tomorrow. Follow-up plans: Check echocardiogram report. Will call patient post discharge. Patient may qualify for outpatient cardiac rehabilitation- will f/u with PCP PRN. Patient welcomed to call this service for HF information. Patient will be welcomed to come in for OP education visit. Need to review diet choices in detail. Teaching materials given today: [facility] Heart Failure bundle folder-[facility] My Action Plan Living Well with Heart Failure book, Daily weight and symptom monitoring log, Zones magnet, Low Sodium Shopping list. Better Options Frozen Meals. [facility] contact information
--- NOTE | 2019-11-20 17:45 | NUR ---
PATIENT IN BED RESTING AFTER DINNER. SAYS SHE IS STILL ANXIOUS. REQUESTED MEDS TO HELP HER SLEEP. RN NOTIFIED. FRESH WATER GIVEN. CALL LIGHT IN REACH. NO OTHER NEEDS AT THIS TIME.
--- NOTE | 2019-11-20 17:58 | NUR ---
PATIENT UP ON EDGE OF BED ANXIOUS. HYDROXYZINE GIVEN PER PATIENT REQUEST. RESPIRATTIONS UNLABORED. PATIENT DENIES PAIN. PATIENT AGITATED BECAUSE SHE HAS 2 INTERVIEWS TOMORROW AFTERNOON AND IS WORRIED ABOUT BEING DISCHARGED IN TIME. NO FURTHER REQUESTS. CALL LIGHT WITHIN REACH.
--- NOTE | 2019-11-20 18:53 | NUR ---
PATIENT VS STABLE ALL SHIFT. PATIENT DENIES PAIN OR SHORTNESS OF BREATH. VOIDING WELL. AMBULATING WELL INDEPENDENTLY IN ROOM. EATING AND DRINKING WELL. HYDROXYZINE FOR ANXIETY GOVEM ONCE THIS SHIFT PER PATIENT REQUEST FOR ANXIETY. ECHO COMPLETED. EJECTION FRACTION OF 28%. ULTRASOUND OF THYROID COMPLETED. PATIENT ANXIOUS TO GO HOME SHE STATES SHE HAS 2 JOB INTERVIEWS LINED UP TOMORROW AFTERNOON.
--- NOTE | 2019-11-20 19:05 | NUR ---
BEDSIDE REPORT RECEIVED FROM RNS CLAYTON AND GENE. pt RESTING IN BED, ANXIOUS. STATES "I FEEL LIKE I NEED TO GET UP, GET OUT, CAN'T CALM DOWN". NO REQUESTS AT THIS TIME.
--- NOTE | 2019-11-20 20:38 | NUR ---
AT NURSES STATION. VERBAL ORDER FOR PRN SLEEP, ONE TIME ANXIETY MEDICATION. ORDERS REPEATED BACK.
--- NOTE | 2019-11-20 20:43 | NUR ---
VITALS AND I&OS DONE AND CHARTED. BEDSIDE TABLE AND CALL LIGHT IN REACH. PT ASKING FOR A SAND BOX. I WILL GO GET THAT FOR HER. SHE NEEDS NOTHING MORE AT THIS TIME.
--- NOTE | 2019-11-20 21:07 | NUR ---
pt UP IN CHAIR EATING SANDWICH BOX. COMPLAINS OF ANXIETY. PRN MEDICATION ADMINISTERED. HR TACHYCARDIC, REGULAR RHYTHM. 1+ EDEMA BLE. CRACKLES AUSCULTATED RLL. ALLOTTED ICE WATER PROVIDED. IV SL WNL. CALL LIGHT IN REACH.
--- NOTE | 2019-11-20 23:59 | NUR ---
CHECKED ON pt, RESTING IN BED AWAKE. DENIES ANY NEEDS AT THIS TIME. CALL LIGHT IN REACH.
--- NOTE | 2019-11-21 03:07 | NUR ---
pt RESTING IN BED WITH EYES CLOSED. BREATHING UNLABORED. LIGHTS OFF IN ROOM.
--- NOTE | 2019-11-21 05:26 | NUR ---
pt APPEARED TO REST THIS SHIFT. PRN ANXIETY AND SLEEP MEDICATIONS ADMINISTERED. FINE CRACKLES RLL, 1+ EDEMA BLE, ELEVATED TOLERATED. VOIDING QS. INDEPENDENT IN ROOM. IV SL.
--- NOTE | 2019-11-21 05:46 | NUR ---
TUMBLING INSTRUCTOR IN pt ROOM. pt DROWSY, AWAKE RESTING IN BED. ASSESSMENT COMPLETE. 1+ EDEMA BLE, IMPROVED FROM START OF SHIFT. URINE HAT EMPTIED. LUNG SOUNDS CLEAR THROUGHOUT. DAILY STANDING WEIGHT 77.5 KG. CALL LIGHT IN REACH. NO REQUESTS AT THIS TIME.
--- NOTE | 2019-11-21 07:45 | NUR ---
REPORT RECEIVED. PT IT BED WITH EYES CLOSED. RESPIRATIONSEQUAL AND NON LABORED. CALL LIGHT IN REACH,.
[2019-11-21] MEDS ORDERED: LISINOPRIL2.5 MG PO (09:07)
[2019-11-21] MEDS ORDERED: LASIX20 MG PO (09:09)
[2019-11-21] MEDS ORDERED: CARVEDILOL6.25 MG PO (09:11)
--- NOTE | 2019-11-21 09:17 | NUR ---
ASSESSMENT COMPLETED. PT WITH TRACE EDEMA BILAT LE. LUNGS CLEAR THROUGHOUT. OXYGEN WNL ON RA. PT DENIES SOB. DENEIS PAIN. CALL LIGHT IN REACH. DR CHARY JARRETT ON PT.
--- NOTE | 2019-11-21 09:53 | NUR ---
PATIENT SITTING ON EDGE OF BED TALKING WITH VISITOR. IV TAKEN OUT UPON RN REQUEST, CATH IN TACT AND LOOKED GOOD, RN NOTIFIED. CALL LIGHT IN REACH. NO FURTHER NEEDS AT THIS TIME.
--- NOTE | 2019-11-21 10:07 | NUR ---
FRANCISCO CRUMP REQUESTED I SEE IF I AM ABLE TO SECURE STORAGE AND OR HOUSING FOR PT IF SHE IS EVICTED. PT GAVE ME PERMISSION TO SEEK HELP-WAS ABLE TO SECURE STORAGE FOR HER BELONGINGS IF NEEDED. INSTRUCTED PT TO CONTACT ME IF SHE STILL IS IN NEED, PT ACKNOWLEDGES SHE UNDERSTANDS. GAVE BLESSING, AND WILL FOLLOW NEEDED
== END 2019-11-21 10:37 | disposition home or self-care (01) | DRG 293 ==
LOC: ED 13:14 → MS 17:01
PROVIDERS: ADMIT Internal Medicine; ATTEND Internal Medicine
DX: I11.0 Hypertensive heart disease with heart failure (principal); I50.23 Acute on chronic systolic (congestive) heart failure; Z20.828 Contact with and (suspected) exposure to other viral communicable diseases; G43.909 Migraine, unspecified, not intractable, without status migrainosus; F43.9 Reaction to severe stress, unspecified; E07.89 Other specified disorders of thyroid; Z59.0 Homelessness; Z56.0 Unemployment, unspecified; Z88.5 Allergy status to narcotic agent; Z88.6 Allergy status to analgesic agent
CPT/HCPCS: 36415; 71045; 71260; 76536; 80048; 80053; 80061; 83036; 83735; 83880; 84439; 84443; 84484; 85025; 85379; 90686; 93005; 93010; 93306; 94640; 99285-25; C9803; J1650; J1940; J3475; Q0177; Q9967

== ENCOUNTER 2020-08-27 14:36 | Emergency (ER) | payer OTHER ==
[~2020-08-27] VITALS: Ht 160 cm; Wt 83.9 kg
[~2020-08-27 14:36] MED LIST changes: +CARVEDILOL6.25 MG PO; +LASIX20 MG PO; +LISINOPRIL2.5 MG PO
--- OUTSIDE RECORDS SUMMARY | 2020-08-27 14:42 | XMS ---
PreManage Notification: LULU JUAREZ Security Mason Liner Events No recent Security Events currently on file CRITERIA MET - [facility] - Has Care Guidelines CARE PROVIDERS There are no care providers on record at this time. [facility] has no Care Guidelines for this patient. Care History Medical/Surgical 11/20/2019 [facility] Patient admitted to [facility].\T\nbsp; This patient has not seen PCP Dr. Urban for several years. Patient was allowed to re:establish care with Dr. Urban - No follow up appointment scheduled until patient is discharged.\T\nbsp; Patient is currently homeless and jobless.\T\nbsp; I will work with patient re: community resources.\T\nbsp; Currently voice mail not set up.\T\nbsp; E.D. VISIT COUNT (12 MO.) 2 [facility] TOTAL 2 NOTE: Visits indicate total known visits. ED/UCC VISIT TRACKING (12 MO.) 08/27/2020 14:36 [facility] TYPE: Emergency COMPLAINT: - SHORTNESS OF BREATH 11/17/2019 13:15 [facility] TYPE: Emergency COMPLAINT: - SOB INPATIENT VISIT TRACKING (12 MO.) 11/17/2019 17:01 [facility] TYPE: Medical Surgical COMPLAINT: - HEART FAILURE DIAGNOSES: - Reaction to severe stress, unspecified - Homelessness - Allergy status to narcotic agent - Heart failure, unspecified - Migraine, unspecified, not intractable, without status migrainosus - Allergy status to analgesic agent - Hypertensive heart disease with heart failure - Contact with and (suspected) exposure to other viral communicable diseases - Acute on chronic systolic (congestive) heart failure - Unemployment, unspecified - Allergy status to narcotic agent - Allergy status to analgesic agent - Other specified disorders of thyroid [email or web address]
[2020-08-27] MEDS ORDERED: LASIX20 MG PO (18:18)
--- NOTE | 2020-08-28 16:00 | EKG ---
[facility] [address] [facility] [place], [place] [address] Signed Sinus tachycardia Biatrial enlargement Abnormal ECG When compared with ECG of 17-NOV-2019 13:24, No significant change was found Confirmed by ANJEL STILL MD ([id number]) on 08/28/2020 4:00:27 PM Electronically Signed By: ANJEL STILL MD 08/28/20 1600 PATIENT NAME: ANNLULUMEREDITH VILLARREAL Electrocardiogram DATE OF : 69 PHYSICIAN: ANJEL STILL MD REPORT #: [id number] REPORT IS CONFIDENTIAL AND NOT TO BE RELEASED WITHOUT AUTHORIZATION
== END 2020-08-27 18:31 | disposition home or self-care (01) ==
LOC: ED 14:36
DX: I11.0 Hypertensive heart disease with heart failure (principal); I50.9 Heart failure, unspecified; Z88.8 Allergy status to other drugs, medicaments and biological substances; Z88.5 Allergy status to narcotic agent; Z79.899 Other long term (current) drug therapy
CPT/HCPCS: 71045; 80053; 83735; 84484; 85025; 93005; 93010; 99285-25; J1940

== ENCOUNTER 2024-02-03 17:55 | Observation (INO) | payer OTHER ==
[~2024-02-03] VITALS: Ht 160 cm; Wt 86.5 kg
[~2024-02-03 17:55] MED LIST changes: +SEVOFLURANE 250 ML BTL INH ONE
[2024-02-03] MEDS ORDERED: SODIUM CHLORIDE 0.9% 1,000 ML IV ONE (19:45)
[2024-02-03] MEDS ORDERED: ondansetron HCL 4 MG/2 ML VIAL IV ONE (19:45)
[2024-02-03 19:57] LABS: BASOPHILS 0.5 % (0-2); EOSINOPHILS 1.2 % (0-6); HEMATOCRIT 44.7 % (35.0-50.0); HEMOGLOBIN 15.6 g/dL (12.0-18.0); LYMPHOCYTES 14.5 % (24-44); MCH 34.1 (27-36); MCV 97.5 fl (81-99); MONOCYTES 7.3 % (0-12); NEUTROPHILS 76.5 % (39-80); PLATELET COUNT 225 K/uL (140-440); RBC 4.58 M/ul (4.3-5.7); RDW 12.8 (10.5-15.0)
[2024-02-03] MEDS ORDERED: MORPHINE SULFATE 4 MG/ML VIAL IV ONE (20:00)
[2024-02-03 20:17] LABS: ALBUMIN 3.7 g/dL (3.4-5.0); ALBUMIN/GLOBULIN RATIO 0.84 (1.1-2.4); ANION GAP 13.4 (7-21); BILIRUBIN, TOTAL 2.8 ng/dL (0.2-1.0); BUN/CREATININE RATIO 17.39 (6.0-28.6); CALCIUM 9.1 mg/dL (8.5-10.1); CREATININE, SERUM 0.69 mg/dL (0.55-1.02); MAGNESIUM 2.1 mg/dL (1.8-2.4); POTASSIUM 5.4 mmol/L (3.5-5.1); PROTEIN, TOTAL 8.1 g/dL (6.4-8.2)
[2024-02-03 20:56] LABS: BILIRUBIN, URINE NEGATIVE (negative); BLOOD/HGB, URINE NEGATIVE (Negative); KETONE, URINE NEGATIVE (Negative); LEUK ESTERASE, URINE NEGATIVE (negative); NITRITE, URINE NEGATIVE (negative)
[2024-02-04] VITALS (15 sets, daily range): BP systolic 144–177; BP diastolic 74–98
[2024-02-04] MEDS ORDERED: CEFTRIAXONE/SODIUM CHLORIDE 2 GM/100 ML PIGGYBACK IV SCH ×2 (00:30→09:09)
[2024-02-04] MEDS ORDERED: DEXTROSE 5% - LACTATED RINGERS 1,000 ML IV SCH ×2 (00:30→09:15)
[2024-02-04] MEDS ORDERED: ondansetron HCL 4 MG/2 ML VIAL IV PRN ×3 (00:30→11:45)
[2024-02-04] MEDS ORDERED: HYDROmorphone HCL 1 MG/ML SYR IV PRN ×2 (00:30→09:15)
[2024-02-04] MEDS ORDERED: KETOROLAC TROMETHAMINE 15 MG/ML VIAL IV PRN (00:30)
[2024-02-04] MEDS ORDERED: metroNIDAZOLE/SODIUM CHLORIDE 500 MG/100 ML PIGGYBACK IV SCH (00:30)
[2024-02-04 05:36] LABS: BASOPHILS 0.7 % (0-2); EOSINOPHILS 2.5 % (0-6); LYMPHOCYTES 29.2 % (24-44); MCH 34.4 (27-36); MCHC 35.3 g/dl (30-36); MCV 97.4 fl (81-99); MONOCYTES 7.7 % (0-12); NEUTROPHILS 59.9 % (39-80); PLATELET COUNT 225 K/uL (140-440); RDW 12.8 (10.5-15.0)
[2024-02-04 05:58] LABS: ALBUMIN 2.9 g/dL (3.4-5.0); ALBUMIN/GLOBULIN RATIO 0.81 (1.1-2.4); ANION GAP 10.6 (7-21); BILIRUBIN, TOTAL 0.7 ng/dL (0.2-1.0); CALCIUM 8.2 mg/dL (8.5-10.1); CREATININE, SERUM 0.7 mg/dL (0.55-1.02); MAGNESIUM 1.9 mg/dL (1.8-2.4); POTASSIUM 3.6 mmol/L (3.5-5.1); PROTEIN, TOTAL 6.5 g/dL (6.4-8.2)
[2024-02-04] MEDS ORDERED: FUROSEMIDE20 MG PO (08:54)
[2024-02-04] MEDS ORDERED: CARVEDILOL25 MG PO (08:54)
[2024-02-04] MEDS ORDERED: LISINOPRIL40 MG PO (08:55)
[2024-02-04] MEDS ORDERED: SPIRONOLACTONE25 MG PO (08:55)
[2024-02-04] MEDS ORDERED: CELECOXIB100 MG PO (08:56)
[2024-02-04] MEDS ORDERED: LO-DOSE ASPIRIN81 MG PO (08:56)
[2024-02-04] MEDS ORDERED: VITAMIN D21250 MCG PO (08:57)
[2024-02-04] MEDS ORDERED: ENOXAPARIN SODIUM 40 MG/0.4 ML SYR SUB-Q SCH (09:10)
[2024-02-04] MEDS ORDERED: PANTOPRAZOLE SODIUM 40 MG/10 ML VIAL IV SCH (09:11)
[2024-02-04] MEDS ORDERED: PROCHLORPERAZINE EDISYLATE 10 MG/2 ML VIAL IV PRN (09:15)
[2024-02-04] MEDS ORDERED: ACETAMINOPHEN 325 MG TAB PO PRN (09:15)
[2024-02-04] MEDS ORDERED: ACETAMINOPHEN 650 MG SUPP PR PRN (09:15)
[2024-02-04] MEDS ORDERED: BUPIVACAINE HCL 0.25% 50 ML MDV ONE (09:24)
[2024-02-04] MEDS ORDERED: iopamidoL 30 ML VIAL ONE (09:24)
[2024-02-04] MEDS ORDERED: LIDOCAINE 1% W/ EPI 1:200,000 30 ML SDV ONE (09:24)
[2024-02-04] MEDS ORDERED: SODIUM CHLORIDE 0.9% 40 ML IV ONE (09:25)
[2024-02-04] MEDS ORDERED: LIDOCAINE HCL 1% 30 ML SDV ONE (09:50)
[2024-02-04] MEDS ORDERED: ROCURONIUM BROMIDE 50 MG/5 ML SYR ONE (09:50)
[2024-02-04] MEDS ORDERED: LIDOCAINE HCL 2% 5 ML SDV ONE (09:50)
[2024-02-04] MEDS ORDERED: SUGAMMADEX SODIUM 200 MG/2 ML ML ONE (09:50)
[2024-02-04] MEDS ORDERED: fentaNYL citrate 100 MCG/2 ML VIAL ONE ×2 (09:50→10:26)
[2024-02-04] MEDS ORDERED: DEXAMETHASONE SOD PHOS 4 MG/ML VIAL ONE (09:50)
[2024-02-04] MEDS ORDERED: propofoL 200 MG/20 ML VIAL ONE (09:50)
[2024-02-04] MEDS ORDERED: ondansetron HCL 4 MG/2 ML VIAL ONE (09:50)
[2024-02-04] MEDS ORDERED: dexmedeTOMIDine HCl 200 MCG/2 ML VIAL ONE (09:59)
[2024-02-04] MEDS ORDERED: ACETAMINOPHEN 1,000 MG/100 ML VIAL ONE (10:03)
[2024-02-04] MEDS ORDERED: ESMOLOL HCL 100 MG/10 ML VIAL IV ONE (10:23)
[2024-02-04] MEDS ORDERED: GLUCAGON,HUMAN RECOMBINANT 1 MG/ML VIAL ONE (10:33)
[2024-02-04] MEDS ORDERED: LACTATED RINGER'S 1,000 ML IV ONE (10:53)
--- NOTE | 2024-02-04 11:44 | CONS ---
[facility] [address] [place], [place] [address] Signed DATE OF CONSULTATION: 02/04/2024 CHIEF COMPLAINT: Right upper quadrant abdominal pain. HISTORY OF PRESENT ILLNESS: Jud is a 58-year-old female with one day or may be two day history of right upper quadrant abdominal pain with nausea and vomiting. She finally came to the emergency room for evaluation. Her white count was normal, but her liver function tests were elevated. The lipase was normal. CT scan of the abdomen and pelvis showed multiple stones in the gallbladder with some mild dilation of the intra and extrahepatic bile ducts. The common bile duct was 12 mm. Ultrasound was performed and she does have multiple small dependent gallstones and a positive Qiu sign. The gallbladder wall is about 3 mm and again she has mild dilation of the intra and extrahepatic bile ducts with the common bile duct about 11 mm. She was given some Rocephin and Flagyl and admitted overnight. She has done well overnight. PAST MEDICAL HISTORY: Hypertension, congestive heart failure, and seizures more than 10 years ago. PAST SURGICAL HISTORY: Includes an appendectomy, cervical fusion with metal, L4-L5 fusion with metal, C-sections x2, uterine polypectomy and bilateral total hip replacements in [place], [place] for which she took oxycodone without difficulties. SOCIAL HISTORY: She does not smoke or drink but she uses marijuana every night to go to bed. Dr. Mahendra Lucio is her primary care provider. She is single and has three children, one was born vaginally. 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 She lives with her amstyep-ql-njk and family in the house. The vomhidh-uy-krz is Dwaine Baltazar at [phone]. FAMILY HISTORY: Mom had cancer of unknown origin. REVIEW OF SYSTEMS: She had 10 systems reviewed and she told me about her various surgeries and the metal in her body. ALLERGIES: She took Tylox and it seemed to give her hives. She thinks naproxen gives her hives as well. However, she took oxycodone after bilateral recent hip replacements and did fine. Electronically Signed By: YOEL MESA MD 02/04/24 1144 PATIENT NAME: JUD JUAREZ CONSULTATION DATE OF : 69 REPORT #: [id number] PHYSICIAN: YOEL MESA MD PCP: MAHENDRA LUCIO DO REPORT IS CONFIDENTIAL AND NOT TO BE RELEASED WITHOUT AUTHORIZATION [facility] [address] [place], [place] [address] Signed MEDICATIONS: 1. Carvedilol 6.25 mg p.o. b.i.d. 2. Lisinopril 2.5 mg p.o. daily. 3. Lasix 20 mg p.o. b.i.d. PHYSICAL EXAMINATION: VITAL SIGNS: Her blood pressure is 145/75, heart rate is 93, respiratory rate is 16, temperature is 98.0. She is 95% on room air. She is 5 feet 3 inches at 86 kg with a body mass index of 33. GENERAL: Jud is a 58-year-old female, lying supine in her hospital bed. She is alert, awake, and interactive. She is in no acute distress. She is not jaundiced. She has very poor dentition. LUNGS: Clear to auscultation bilaterally. HEART: Regular rate and rhythm without murmurs. ABDOMEN: Obese and soft, but she is tender in the right upper quadrant. LABORATORY DATA: Her white blood cell count is 4.8, hemoglobin 13 neutrophils 58, platelets 225. Electrolytes unremarkable. Creatinine 0.70. AST was 1059 down to 525, ALT was 765, it is down to 624, alkaline phosphatase 113, is down to 100. Total bilirubin is 2.8, is down to 0.7. Her lipase is 53. Albumin is 2.9. Urinalysis was negative and beta-HCG was negative. RADIOGRAPHIC STUDIES: CT scan of the abdomen and pelvis showed multiple gallstones with some mild dilation of her intra and extrahepatic bile ducts with the common bile duct of 12 mm. The ultrasound showed multiple small dependent gallstones with a positive Qiu sign. The gallbladder wall is not thickened at 3 mm. There is mild dilation of the intra and extrahepatic bile ducts. Common bile duct is 11 mm. ASSESSMENT AND PLAN: Jud is a 58-year-old obese female, who presents with symptomatic cholelithiasis and cholecystitis. She has been admitted and hydrated, given pain control and antibiotics. I reviewed the above findings with her. I brought a brochure on the gallbladder. We looked at that carefully page by page. She understands the location and function of the gallbladder. She understands laparoscopic versus open cholecystectomy. There is risk including, but not limited to bleeding, infection, scarring, change in contour of the skin, damage to bowel, damage to main bile duct, incisional hernias and other unforeseen comorbidities. She understands and the expected intraop and postop course. She has expressed understanding and would like to proceed. Electronically Signed By: YOEL MESA MD 02/04/24 1144 PATIENT NAME: JUD JUAREZ CONSULTATION DATE OF : 69 REPORT #: [id number] PHYSICIAN: YOEL MESA MD PCP: MAHENDRA LUCIO DO REPORT IS CONFIDENTIAL AND NOT TO BE RELEASED WITHOUT AUTHORIZATION [address] [place], [place] [address] Signed Yoel Mesa MD ALB/MODL /[id number] cc: MD Mahendra Regalado DO Copies: YOEL MESA MD, ARIAN DO ~ Electronically Signed By: YOEL MESA MD 02/04/24 1144 PATIENT NAME: JUD JUAREZ CONSULTATION DATE OF : 69 REPORT #: [id number] PHYSICIAN: YOEL MESA MD PCP: MAHENDRA LUCIO DO REPORT IS CONFIDENTIAL AND NOT TO BE RELEASED WITHOUT AUTHORIZATION
[2024-02-04] MEDS ORDERED: fentaNYL citrate 50 MCG/ML SDV IV PRN (11:45)
[2024-02-04] MEDS ORDERED: MIDAZOLAM HCL 2 MG/2 ML VIAL IV PRN (11:45)
[2024-02-04] MEDS ORDERED: IBLOOD GLUCOSE TEST STRIP 1 EA TEST VI PRN (11:45)
[2024-02-04] MEDS ORDERED: NALOXONE HCL 0.4 MG SYR IV PRN (11:45)
[2024-02-04] MEDS ORDERED: OXYCODONE HCL 5 MG TAB PO PRN (12:00)
--- NOTE | 2024-02-04 12:05 | EKG ---
[facility] [address] [facility] [place] [address] Signed Normal sinus rhythm Right atrial enlargement Prolonged QT Abnormal ECG When compared with ECG of 27-AUG-2020 15:07, No significant change was found Confirmed by Fermin Rollins MD ([id number]) on 02/04/2024 12:05:06 PM Electronically Signed By: FERMIN ROLLINS 02/04/24 1205 PATIENT NAME: ANNLULUMEREDITH VILLARREAL Electrocardiogram DATE OF : 69 PHYSICIAN: FERMIN ROLLINS REPORT #: [id number] REPORT IS CONFIDENTIAL AND NOT TO BE RELEASED WITHOUT AUTHORIZATION
--- NOTE | 2024-02-04 12:29 | OR ---
[facility] [address] [place], [place] [address] Signed DATE OF OPERATION: 02/04/2024 SURGEON: Yoel Mesa MD PREOPERATIVE DIAGNOSES: 1. Acute cholecystitis with cholelithiasis. 2. Dilated bile ducts. POSTOPERATIVE DIAGNOSES: 1. Acute cholecystitis with cholelithiasis. 2. Dilated bile ducts. 3. Possible choledocholithiasis/debris. PROCEDURES: 1. Laparoscopic cholecystectomy with intraoperative cholangiogram. 2. Subhepatic drain placement. FINDINGS: Jud indeed had dilated cystic duct and common bile duct in her ducts headed up into the liver. We could not get the contrast to flow through the distal common bile duct even after a mg of glucagon. We thought we might see some debris and/or stone in the common bile duct. We did milk two stones out of the cystic duct. One before the intraoperative cholangiogram and one after. She also had multiple 4 mm stones within the gallbladder along with cholesterolosis. She had some chronic inflammatory changes to the surrounding fat. ESTIMATED BLOOD LOSS: 25 mL. INDICATIONS: Jud is a 58-year-old female with a body mass index of 33. She had one maybe two days of right upper quadrant abdominal pain with nausea and vomiting. She came to the emergency room for evaluation. Vital signs were stable. She was tender in the right upper quadrant. White count was normal. Initially, the AST, ALT, alkaline phosphatase and total bilirubin were quite high. They decreased rapidly just overnight. The lipase was normal at 53. Her CT scan showed multiple stones and mild dilation of the intra and extrahepatic bile ducts. The common bile duct was about 12 mm. An ultrasound was performed and confirmed multiple small stones within the gallbladder. She had a positive Qiu sign. The gallbladder wall was not thickened at 3 mm. She had mild dilation of the intra and extrahepatic bile ducts. The common bile duct was about 11 Electronically Signed By: YOEL MESA MD 02/04/24 1229 PATIENT NAME: JUD JUAREZ OPERATIVE REPORT DATE OF : 69 REPORT #: [id number] PHYSICIAN: YOEL EMSA MD PCP: JOSSY LUCIO DO REPORT IS CONFIDENTIAL AND NOT TO BE RELEASED WITHOUT AUTHORIZATION [facility] [address] [place], [place] [address] Signed mm. I have been asked to admit her as a general surgeon on-call. She received IV fluids, Rocephin and Flagyl overnight along with some Dilaudid. She also told she is allergic to Tylox, but took oxycodone recently for bilateral hip replacements. I met her this morning and I reviewed the above findings with her. I gave her our brochure on the gallbladder. We looked at it page by page. She understands the location and function of the gallbladder. We discussed laparoscopic versus open cholecystectomy. There is risk including, but not limited to bleeding, infection, scarring, change in contour of the skin, damage to bowel, damage to main bile duct, incisional hernias and other unforeseen comorbidities. She had expressed understanding and wished to proceed. DESCRIPTION OF PROCEDURE: Jud was taken into our operating room and placed in the supine position. She was placed under general endotracheal tube anesthesia. She was on preoperative antibiotics to include Rocephin and Flagyl. She was on subcutaneous Lovenox. SCDs were utilized. She had been prepped and draped in the usual sterile fashion. We could not specifically palpate this gallbladder. Our trocars were placed in usual positions under direct visualization of camera without difficulty. The gallbladder was grasped and elevated in the right upper quadrant. The gallbladder had been decompressed. The bile was more less green, not overly thick. She had some adhesions to the surrounding fat which were taken down bluntly and with judicious cautery. We had to sweep the duodenal down away as well. We dissected out the triangle of Calot with our [place] dissector. We inserted the intraoperative cholangiocatheter into the neck of the gallbladder and down into the cystic duct. It looked like the cystic duct was a bit dilated. We initially took out one gallstone stone. When we did the intraoperative cholangiogram we saw another stone in the cystic duct and we milked it out as well. Common bile duct was indeed dilated around 12 mm. We could not get any contrast to flow through the ampulla of Vater. We went ahead and gave a mg of glucagon and still contrast would not pass through. We thought there might have been some debris or possibly a stone in the common bile duct but we were unsure even with our contrast diluted in half. We went ahead and secured the cystic duct stump with a PDS Endoloop and two clips were placed across the cystic duct stump to juvenal its location. We put several clips on the cystic artery as we traveled up the gallbladder and removed the gallbladder carefully and slowly from the liver with the help of the cautery. The gallbladder was then placed into an EndoCatch bag. The right upper quadrant was irrigated and suctioned out until clear. We placed a #7 flat Praveen drain through the area of the cystic duct and out the right side of the abdomen below the costal margin. It was held in place at the level of skin with a 2-0 nylon suture. We then used 0 Vicryl suture in our laparoscopic suturing device to pass 0-Vicryl suture on either side of the fascia of the subxiphoid trocar site. This was tied down to close this fascia primarily. After this, all the gas was allowed to escape and all the trocars were removed along with the gallbladder. The gallbladder was passed off the field for photodocumentation by our circulating nurse. We closed the fascia of the supraumbilical trocar site with interrupted [id number]-ge-[id number] and simple 0-Vicryl Electronically Signed By: YOEL MESA MD 02/04/24 1229 PATIENT NAME: JUD JUAREZ OPERATIVE REPORT DATE OF : 69 REPORT #: [id number] PHYSICIAN: YOEL MESA MD PCP: JOSSY LUCIO DO REPORT IS CONFIDENTIAL AND NOT TO BE RELEASED WITHOUT AUTHORIZATION [facility] [address] [place], [place] [address] Signed sutures. Local anesthetic was injected into all trocar sites. Each trocar site was irrigated and suctioned out until clear. We closed the skin and dermis of each trocar site with interrupted 3-0 subcuticular Monocryl sutures. Dry gauze and tape was applied to all incisions. The gallbladder indeed had multiple 4 mm yellow cholesterol stones and some cholesterolosis. After this, Jud was awakened from her anesthesia, extubated in the OR, and taken to recovery room in stable condition. Yoel Mesa MD ALB/SHAYNEL /[id number] cc: DO Yoel Platt MD Copies: JOSSY LUCIO ANDREW L MD ~ Electronically Signed By: YOEL MESA MD 02/04/24 1229 PATIENT NAME: JUD JUAREZ OPERATIVE REPORT DATE OF : 69 REPORT #: [id number] PHYSICIAN: YOEL MESA MD PCP: JOSSY LUCIO DO REPORT IS CONFIDENTIAL AND NOT TO BE RELEASED WITHOUT AUTHORIZATION
[2024-02-04] MEDS ORDERED: carvediloL 25 MG TAB ONE (14:56)
[2024-02-04] MEDS ORDERED: carvediloL 25 MG TAB PO SCH (21:00)
[2024-02-05] VITALS (7 sets, daily range): BP systolic 150–169; BP diastolic 82–88
[2024-02-05 05:15] LABS: BASOPHILS 0.2 % (0-2); EOSINOPHILS 0.4 % (0-6); HEMATOCRIT 36.8 % (35.0-50.0); HEMOGLOBIN 12.8 g/dL (12.0-18.0); MCH 33.8 (27-36); MCHC 34.8 g/dl (30-36); MCV 97.3 fl (81-99); MONOCYTES 9.6 % (0-12); NEUTROPHILS 76.8 % (39-80); PLATELET COUNT 239 K/uL (140-440); RBC 3.79 M/ul (4.3-5.7); RDW 12.8 (10.5-15.0)
[2024-02-05 05:30] LABS: ALBUMIN 2.8 g/dL (3.4-5.0); ALBUMIN/GLOBULIN RATIO 0.82 (1.1-2.4); BILIRUBIN, TOTAL 2.4 ng/dL (0.2-1.0); BUN/CREATININE RATIO 5.95 (6.0-28.6); CALCIUM 8.4 mg/dL (8.5-10.1); CREATININE, SERUM 0.84 mg/dL (0.55-1.02); PHOSPHORUS, INORGANIC 3.4 mg/dL (2.5-4.9); PROTEIN, TOTAL 6.2 g/dL (6.4-8.2)
[2024-02-05] MEDS ORDERED: CEFTRIAXONE/SODIUM CHLORIDE 2 GM/100 ML PIGGYBACK IV SCH (09:00)
[2024-02-05] MEDS ORDERED: metroNIDAZOLE/SODIUM CHLORIDE 500 MG/100 ML PIGGYBACK IV SCH (09:00)
[2024-02-05] MEDS ORDERED: FUROSEMIDE 20 MG TAB PO SCH (09:00)
[2024-02-05] MEDS ORDERED: PANTOPRAZOLE SODIUM 40 MG TABEC PO SCH (09:00)
[2024-02-05] MEDS ORDERED: lisinopriL 40 MG TAB PO SCH (09:00)
[2024-02-05] MEDS ORDERED: levoFLOXacin 750 MG PIGGYBACK IV SCH (10:04)
--- NOTE | 2024-02-05 12:26 | DS ---
[facility] [address], [place] [address] Signed ADMISSION DATE: 02/04/2024 DISCHARGE DATE: 02/05/2024 FINAL DIAGNOSES: 1. Acute cholecystitis, cholelithiasis. 2. Choledocholithiasis (4 mm stone). PROCEDURES: 1. Laparoscopic cholecystectomy with intraoperative cholangiogram. 2. Placement subhepatic drain. 3. CT scan of abdomen and pelvis. 4. Ultrasound right upper quadrant. 5. MRCP. HISTORY OF PRESENT ILLNESS: Jud is a 58-year-old female, who had 1-day history of right upper quadrant abdominal pain associated with nausea and vomiting. She came to our emergency room for evaluation. Her vital signs were stable. She was tender in the right upper quadrant. Her white count was normal but the AST started at 1059, ALT 765, and alkaline phosphatase 113 with a total bilirubin of 2.8. Lipase was normal at 53. Albumin is slightly low at 2.9. The platelet count was good at 225. A CT scan showed cholelithiasis with some dilation of the intra and extrahepatic bile ducts. The common bile duct was about 12 mm. An ultrasound was then done and it showed a multiple dependent gallstones with a positive Qiu sign. The gallbladder wall did not appear to be thickened at 3 mm and again mild dilation of the intra and extrahepatic bile ducts with the common bile duct about 11 mm. I have been asked to admit the patient overnight as a general surgeon on-call. HOSPITAL COURSE: Jud was admitted as above and started on Rocephin, Flagyl, IV fluids and pain control. By morning, her labs were markedly improved including the total bilirubin. We had taken her to the operating room and she underwent her laparoscopic cholecystectomy with intraoperative cholangiogram. We had milked a couple of stones out of her fairly dilated cystic duct. We thought we had a small stone with some debris in her distal common bile duct. Even with glucagon, we could not get the contrast to flow through. We secured the cystic duct stump with a PDS Endoloop along with a couple of clips. We left a drain in place in the gallbladder fossa. That had moderately dark serosanguineous fluid. We then did an MRCP later that day and they confirmed a small 4 mm stone in her distal common bile duct. She has done well overnight, but her lipase is up over 375. measured over 375. Therefore, we amylase and that she had to return. Her total bilirubin went back up to over 2. She is still having Electronically Signed By: YOEL MESA MD 02/05/24 1226 PATIENT NAME: JUD JUAREZ DISCHARGE SUMMARY DATE OF : 69 REPORT #: [id number] PHYSICIAN: YOEL MESA MD PCP: JOSSY LUCIO DO REPORT IS CONFIDENTIAL AND NOT TO BE RELEASED WITHOUT AUTHORIZATION [facility] [address], [place] [address] Signed some upper abdominal pain. She could be developing some pancreatitis following the intraoperative cholangiogram. In the meantime, we have contacted [facility] in [place], [place]. They were kind enough to take her in transport for ERCP and ongoing management. DISCHARGE PLANS AND MEDICATIONS: Jud is going to be discharged directly over to [facility] in [place], [place]. She will likely have her ERCP tomorrow. I have written her for oxycodone immediate release 10 mg one tablet p.o. q.8 hours p.r.n. for severe postoperative pain, dispensed 15 tablets, no refills. I wrote for Levaquin 500 mg one p.o. daily for five days without refill. Also, Flagyl 250 mg one p.o. t.i.d. for five days without refills. She can use Dulcolax or MiraLAX as needed for constipation. She can use Tylenol as needed for [id number] postoperative pain. She can resume her chronic medications as well. I will be seeing her about a week or so after discharge from [facility] here in [place] for followup. I have reviewed this with Jud and her [id number] Dwaine Zhang at [phone]. He said he would be available to bring her home when she finishes at [facility] in [place], [place]. Jud has expressed understanding and agrees with the above plan. MD CALIXTO Regalado/FRAN /[id number] cc: DO Yoel Platt MD Copies: JOSSY LUCIO ANDREW L MD ~ Electronically Signed By: YOEL MESA MD 02/05/24 1226 PATIENT NAME: JUD JUAREZ DISCHARGE SUMMARY DATE OF : 69 REPORT #: [id number] PHYSICIAN: YOEL MESA MD PCP: JOSSY LUCIO DO REPORT IS CONFIDENTIAL AND NOT TO BE RELEASED WITHOUT AUTHORIZATION
== END 2024-02-05 16:04 | disposition short-term general hospital (02) ==
LOC: ED 17:55 → MS 17:56
PROVIDERS: Family Medicine; ADMIT Colon & Rectal Surgery; ATTEND Colon & Rectal Surgery
PROC: BF03YZZ Plain Radiography of Gallbladder and Bile Ducts using Other Contrast (ICD-10-PCS; 2024-02-04)
PROC: 0FT44ZZ Resection of Gallbladder, Percutaneous Endoscopic Approach (ICD-10-PCS; principal; 2024-02-04 10:00)
DX: K80.12 Calculus of gallbladder with acute and chronic cholecystitis without obstruction (principal); K83.8 Other specified diseases of biliary tract; I11.0 Hypertensive heart disease with heart failure; I50.9 Heart failure, unspecified; Z88.6 Allergy status to analgesic agent; Z88.5 Allergy status to narcotic agent; Z79.899 Other long term (current) drug therapy; Z90.49 Acquired absence of other specified parts of digestive tract
CPT/HCPCS: 00790; 36415; 74177; 74181; 74300; 76705; 80053; 81003; 82150; 83690; 83735; 84100; 84702; 85025; 93005; 93010; 94762; 96361; 96366; 96367; 96368; 96372; 96375; 96376; 99285-25; A9270; G0378; J0131; J0696; J0780; J1100; J1171; J1610; J1650; J1885; J1956; J2003; J2270; J2405; J2470; J2704; J3010; J3490; J7030; J7121; Q9967